=== PATIENT | female | born 1955 | race Caucasian/White ===

== ENCOUNTER 2016-12-14 19:42 | Emergency (ER) | payer OTHER ==
[~2016-12-14 19:42] MED LIST: ATI2I IV; CELEBREX200 MG PO; CLINDAMYCI600 MG/50 IV; COL100 PO; DILAUDID2 MG PO; FLO4 PO; FOL1 PO; LAC PO; LASIX20 MG PO; LEV500PM IV; LEVOCETIRIZINE D5 M1 PO; LIPI10 PO; METOPROLOL TART25 M1 PO; NABUMETONE750 MG PO; PRI20 PO; SINGULAIR10 MG PO; THERA TABS1 TAB PO; THI100 PO; ZES5 PO
[2016-12-14 22:20] LABS: BASOPHIL % 0.7 % (0-2); PLATELET COUNT 150 x10^3mcL (130-400); RED CELL DISTRIBUTION WIDTH 13.4 % (11.5-14.5)
[2016-12-14 22:22] LABS: ALBUMIN 3.7 g/dL (3.4-5.0); ALKALINE PHOSPHATASE 115 U/L (46-116); ALT/SGPT 37 U/L (14-59); AST/SGOT 30 U/L (15-37); BILIRUBIN TOTAL 0.9 mg/dL (0.20-1.00); CALCIUM 8.5 mg/dL (8.5-10.1); CARBON DIOXIDE 27.7 mmol/L (21-32); CHLORIDE SERUM 105 mmol/L (98-107); CREATININE SERUM 0.7 mg/dL (0.6-1.0); GFR1 > 60 mL/min; GLUCOSE SERUM 105 mg/dL (74-106); SODIUM SERUM 142 mmol/L (136-145); TOTAL PROTEIN, SERUM 7.2 g/dL (6.4-8.2)
[2016-12-14 22:33] LABS: CK-MB < 0.5 ng/mL (0-3.6); CREATINE KINASE 44 U/L (26-192)
[2016-12-15 00:40] VITALS: BP 123/78
== END 2016-12-15 00:40 | disposition home or self-care (01) ==
LOC: ED 19:42
PROVIDERS: Emergency Medicine
DX: J20.9 Acute bronchitis, unspecified (principal); I10 Essential (primary) hypertension; J44.9 Chronic obstructive pulmonary disease, unspecified; Z88.0 Allergy status to penicillin
CPT/HCPCS: 36600; 83880; J7613; J7644